=== PATIENT | female | born 1955 | race Two or more races ===

== ENCOUNTER 2021-09-05 07:06 | Inpatient (IN) | payer OTHER ==
[~2021-09-05] VITALS: Ht 157.5 cm; Wt 52.6 kg
[2021-09-05] MEDS ORDERED: METFORMIN HCL500 MG (07:18)
== END 2021-10-01 16:18 | disposition home or self-care (01) | DRG 280 ==
LOC: ER 07:06 → ICU 19:37 → MEDI 19:37 → ICU 09-12 21:56 → MEDI 09-26 14:34 → ICU 09-26 16:30 → MEDI 09-27 13:12
PROVIDERS: ADMIT Internal Medicine; ATTEND Internal Medicine
PROC: BW21ZZZ Computerized Tomography (CT Scan) of Abdomen and Pelvis (ICD-10-PCS; 2021-09-05)
PROC: 5A1955Z Respiratory Ventilation, Greater than 96 Consecutive Hours (ICD-10-PCS; principal; 2021-09-07)
PROC: 0BH17EZ Insertion of Endotracheal Airway into Trachea, Via Natural or Artificial Opening (ICD-10-PCS; 2021-09-07)
PROC: 05H533Z Insertion of Infusion Device into Right Subclavian Vein, Percutaneous Approach (ICD-10-PCS; 2021-09-07)
PROC: B24BYZZ Ultrasonography of Heart with Aorta using Other Contrast (ICD-10-PCS; 2021-09-07)
PROC: 4A12X4Z Monitoring of Cardiac Electrical Activity, External Approach (ICD-10-PCS; 2021-09-07)
PROC: B020ZZZ Computerized Tomography (CT Scan) of Brain (ICD-10-PCS; 2021-09-09)
PROC: 30233N1 Transfusion of Nonautologous Red Blood Cells into Peripheral Vein, Percutaneous Approach (ICD-10-PCS; 2021-09-10)
PROC: BW24ZZZ Computerized Tomography (CT Scan) of Chest and Abdomen (ICD-10-PCS; 2021-09-10)
PROC: 02HV33Z Insertion of Infusion Device into Superior Vena Cava, Percutaneous Approach (ICD-10-PCS; 2021-09-12)
PROC: 0W9B3ZZ Drainage of Left Pleural Cavity, Percutaneous Approach (ICD-10-PCS; 2021-09-15)
PROC: B020ZZZ Computerized Tomography (CT Scan) of Brain (ICD-10-PCS; 2021-09-16)
PROC: 3E0F7SF Introduction of Other Gas into Respiratory Tract, Via Natural or Artificial Opening (ICD-10-PCS; 2021-09-18)
PROC: B24BYZZ Ultrasonography of Heart with Aorta using Other Contrast (ICD-10-PCS; 2021-09-30)
DX: I13.0 Hypertensive heart and chronic kidney disease with heart failure and stage 1 through stage 4 chronic kidney disease, or unspecified chronic kidney disease (principal); J96.00 Acute respiratory failure, unspecified whether with hypoxia or hypercapnia; I21.4 Non-ST elevation (NSTEMI) myocardial infarction; I50.21 Acute systolic (congestive) heart failure; N17.9 Acute kidney failure, unspecified; G93.1 Anoxic brain damage, not elsewhere classified; N18.9 Chronic kidney disease, unspecified; E11.22 Type 2 diabetes mellitus with diabetic chronic kidney disease; E87.5 Hyperkalemia; E11.649 Type 2 diabetes mellitus with hypoglycemia without coma; D64.9 Anemia, unspecified

== ENCOUNTER 2022-04-16 16:05 | Emergency (ER) | payer OTHER ==
[~2022-04-16] VITALS: Ht 149.9 cm; Wt 45.8 kg
[~2022-04-16 16:05] MED LIST: METFORMIN HCL500 MG
== END 2022-04-16 20:52 | disposition home or self-care (01) ==
LOC: ER 16:05
DX: N39.0 Urinary tract infection, site not specified (principal); R11.10 Vomiting, unspecified; B96.20 Unspecified Escherichia coli [E. coli] as the cause of diseases classified elsewhere; B96.89 Other specified bacterial agents as the cause of diseases classified elsewhere; Z20.822 Contact with and (suspected) exposure to COVID-19

== ENCOUNTER 2023-07-10 15:23 | Emergency (ER) | payer OTHER ==
[~2023-07-10] VITALS: Ht 144.8 cm; Wt 45.4 kg
[2023-07-10] MEDS ORDERED: AMLODIPINE-OLM1 EACH (16:26)
[2023-07-10] MEDS ORDERED: JENTADUETO 2.51 EAC2 PO (16:27)
[2023-07-10] MEDS ORDERED: ACID REDUCER20 M1 (16:27)
[2023-07-10] MEDS ORDERED: RAZADYNE ER16 MG PO (16:27)
[2023-07-10] MEDS ORDERED: BENZTROPINE MESY2 MG PO (16:28)
[2023-07-10] MEDS ORDERED: TOPROL XL100 M1 (16:28)
[2023-07-10] MEDS ORDERED: FLUOXETINE HCL60 MG (16:28)
[2023-07-10] MEDS ORDERED: LAMOTRIGINE25 M3 (16:29)
== END 2023-07-10 23:13 | disposition home or self-care (01) ==
LOC: ER 15:23
PROVIDERS: General Practice
DX: R63.0 Anorexia (principal); E11.9 Type 2 diabetes mellitus without complications; Z79.84 Long term (current) use of oral hypoglycemic drugs; I10 Essential (primary) hypertension; Z20.822 Contact with and (suspected) exposure to COVID-19